=== PATIENT | female | born 1980 | race Hispanic/Latino ===

== ENCOUNTER 2018-12-18 09:25 | Day surgery (SDC) | payer BC, OTHER ==
--- NOTE | 2018-12-12 16:59 | History and Physical Report ---
History of Present Illness Date of examination: 12/12/18 Date of admission: 12/18/18 Chief complaint: desires sterilization History of present illness: Visit Type: Pre-Op CC: LTL. History of Present Illness: pt presents for pre op: LTL...vicki All risk/benefits/alternatives were d/w pt and questions were addressed and answered. Consents signed and given to pt to bring to pre op at [facility]. Vital Signs: Patient Profile: 38 Years Old Female LMP: 12/03/2018 Height: 65.25 inches (165.74 cm) Weight: 220 pounds BMI: 36.33 BP sittin / 78 (left arm) Menstrual History: LMP (date): 12/03/2018 Current Method of Contraception: None Date of Last Pap Smear: 11/01/2018 Past History : 3 Term Births: 2 Premature Births: 0 Living Children: 2 Para: 2 Mult. Births: 0 Prev : 0 Prev. attempt? 0 Aborta: 0 Elect. Ab: 1 Spont. Ab: 0 Ectopics: 0 # 1 Delivery date: 04/24/2010 Weeks Gestation: 41 labor: no Delivery type: Hours of labor: 36 Anesthesia type: epidural Delivery location: [facility] [place] Infant Sex: Female weight: 7-2 Name: Sarkis Comments: Induction # 2 Delivery date: 01/23/2015 Weeks Gestation: 40 5/7 Delivery type: Vaginal Anesthesia type: none Delivery location: [facility] Sex: female weight: 6.81 Comments: none, precipitous delivery SKIN CARE CONSULTANT History Uterine Surgery (not C/S): negative Operations: negative Hospitalizations: negative Anesthesia Complications: negative Abnormal PAP: negative Uterine Anomaly: negative TUNG Exposure: negative Infertility: negative Infection History HIV Risk Eval: no Personal hx. of genital herpes: yes Partner hx. 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 Past Surgical History: Reviewed history from 05/21/2013 and no changes required: negative [[facility]] Risk Factors: Smoked Tobacco Use: Current every day smoker Cigarettes: Yes -- 1/2 pack daily pack(s) per day,Smokeless Tobacco Use: Never Drug use: no HIV high-risk behavior: no Alcohol use: yes Exercise: no Seatbelt use: 100 % PAP Smear History: Date of Last PAP Smear: 11/01/2018 Review of Systems General Denies fever, chills, sweats, anorexia, fatigue, weakness, malaise, weight loss and sleep disorder. Denies nausea, vomiting, headache, swelling of legs, abdominal pain, vaginal discharge, vaginal bleeding and contractions. Denies vaginal discharge, incontinence, dysuria, hematuria, urinary f requency, amenorrhea, menorrhagia, abnormal vaginal bleeding, pelvic pain, genital sores, decreased libido, painful periods, painful sex, urinary urgency, hot flashes, vaginal dryness, vaginal itching and vaginal odor. CV Denies chest pains, palpitations, syncope, dyspnea on exertion, orthopnea, PND and peripheral edema. Resp Denies cough, dyspnea at rest, excessive sputum, hemoptysis, wheezing and pleurisy. GI Denies nausea, vomiting, diarrhea, constipation, change in bowel habits, abdominal pain, melena, hematochezia, jaundice, gas/bloating, indigestion/heartburn, dysphagia and odynophagia. Endo Denies cold intolerance, heat intolerance, polydipsia, polyphagia, polyuria and unusual weight change. Breast Denies left breast lump, right breast lump, nipple discharge, bloody discharge from nipple, breast pain, abnormal mammogram and breast enlargement. MS Denies back pain, joint pain, joint swelling, muscle cramps, muscle weakness, stiffness, arthritis, sciatica, restless legs, leg pain at night and leg pain with exertion. Derm Denies rash, itching, dryness and suspicious lesions. Neuro Denies paralysis, paresthesias, headache, seizures, tremors, vertigo, transient blindness, frequent falls, frequent headaches and difficulty walking. Psych Denies depression, anxiety, irritability and mood swings. Eyes Denies blurring, diplopia, irritation, discharge, vision loss, eye pain and photophobia. ENT Denies earache, ear discharge, tinnitus, decreased hearing, nasal congestion, nosebleeds, sore throat and hoarseness. Allergy Denies urticaria, allergic rash, hay fever and recurrent infections. Heme Denies abnormal bruising, bleeding and enlarged lymph nodes. [Labs In-House] Physical Exam Appearance: well developed, well nourished, no acute distress Other Exams Lungs: no rales, rhonchi, or wheezes Heart: S1, S2, no murmur, rub, or gallop Abdomen: soft, non-tender, no masses, bowel sounds normal Extremities: normal alignment, no joint enlargement, crepitus, masses or tenderness; normal tone and strength Genitourinary Exam Comments: deferred until EUA Past History Past Medical History: other (peptic ulcer disease) Past Surgical History: other (vular sx for pre cancer cells) SKIN CARE CONSULTANT History: other (pre cancer cells of vulvar treated) Social history: no significant social history, - Obstetrical History : 2 Spontaneous Abortions: 1 Number of Living Children: 2 Medications and Allergies Allergies Allergy/AdvReac Type Severity Reaction Status Date / Time No Known Allergies Allergy Verified 01/23/15 10:18 Home Medications Medication Instructions Recorded Confirmed Last Taken Type Pnv,Calcium 72/Iron/Folic Acid 1 tab PO DAILY 01/23/15 01/23/15 Unknown History [Pnv Plus Multivit Tab] Valacyclovir HCl [valACYclovir] 1 tab PO DAILY 01/23/15 01/23/15 Unknown History Review of Systems All systems: negative - Physical Exam Cardiovascular: Normal S1, Normal S2 Lungs: Positive: Clear to auscultation, Normal air movement Abdomen: Positive: normal appearance, soft. Negative: distention, tenderness, guarding Genitourinary (Female): Positive: other (deferred until EUA) Extremities: Positive: normal. Negative: tenderness, edema Results All other labs normal. Assessment and Plan - Patient Problems (1) Encounter for sterilization Status: Acute Plan to address problem: -admit and prepare for LTL -consents signed and placed on the chart.
[~2018-12-18 09:25] MED LIST: ANCEF/STERILE WATER 2 GM/20 ML 2 GM/20 ML SYRINGE IV NR; LACTATED RINGERS 1,000 ML IV SCH
[2018-12-18] MEDS ORDERED: MARCAINE 0.5% INFILTRATI ONE ×2 (10:27→10:50)
--- NOTE | 2018-12-18 10:47 | Anesthesia Day of Surgery ---
Anesthesia Day of Surgery - Day of Surgery Patient Examined: Yes Patient H&P Reviewed: Yes Patient is NPO: Yes
--- NOTE | 2018-12-18 10:47 | Anesthesia Consultation ---
Anesthesia Consult and Med Hx Date of service: 12/18/18 - Airway Anesthetic Teeth Evaluation: Good ROM Head & Neck: Adequate Mental/Hyoid Distance: Adequate Mallampati Class: Class II Intubation Access Assessment: Probably Good - Pulmonary Exam CTA: Yes - Cardiac Exam Cardiac Exam: RRR - Pre-Operative Health Status ASA Pre-Surgery Classification: ASA2 Proposed Anesthetic Plan: General - Pulmonary Hx Smoking: Yes - Gastrointestinal Hx Gastroesophageal Reflux Disease: Yes - Endocrine Hx Renal Disease: No (kidney stones) - Additional Comments Anesthesia Medical History Comments: arthiritis
[2018-12-18] MEDS ORDERED: NACL 0.9% IR ONE (10:50)
[2018-12-18] MEDS ORDERED: XYLOCAINE MPF 2% ONE (10:52)
[2018-12-18] MEDS ORDERED: SUBLIMAZE ONE (10:52)
[2018-12-18] MEDS ORDERED: ZEMURON IV ONE (10:52)
[2018-12-18] MEDS ORDERED: DIPRIVAN 10 MG/ML IV ONE ×2 (10:53→11:01)
[2018-12-18] MEDS ORDERED: TORADOL ONE (11:34)
[2018-12-18] MEDS ORDERED: ZOFRAN ONE (11:34)
[2018-12-18] MEDS ORDERED: DECADRON ONE (11:34)
[2018-12-18] MEDS ORDERED: BLOXIVERZ ONE (11:35)
[2018-12-18] MEDS ORDERED: ROBINUL ONE ×2 (11:35)
[2018-12-18] MEDS ORDERED: DILAUDID ONE (11:44)
--- NOTE | 2018-12-18 11:53 | Operative Report ---
Operative Report Operative Report: Date of procedure: 12/18/2018 Pre-operative diagnosis: Encounter for sterilization Post-operative diagnosis: Same Procedure name(s): Laparoscopic bilateral tubal ligation with placement of Filshie clips Surgeon: Dr. 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 endotracheal anesthesia EBL: Minimal Urine output: 100 mL of urine out prior to the onset of the procedure. Straight catheterization Fluids: 650 mL Findings: Grossly normal fallopian tubes and ovaries bilaterally. Normal uterus. Normal cervix normal vagina. Indications: Patient desired to have permanent sterilization. All risks benefits and alternatives were discussed with the patient. Consents were signed and placed on the chart. Procedure: Patient was taken to the operating room and which she was placed under general endotracheal anesthesia. Patient was then prepped and draped in sterile fashion and placed in dorsal lithotomy position in Carmelo stirrups. Attention was then turned to the vagina in which a Humi uterine manipulator was placed. Patient underwent straight catheterization. Attention was then turned to the umbilicus and which an infraumbilical incision was made with the scalpel 5mm trocar was placed using direct visualization with the camera. Abdomen was then insufflated with gas. Under direct visualization a second 8 mm trocar was placed. The Filshie clip orchestra leader with a Filshie clip was then placed through the 8 mm trocar. The Filshie clips were placed bilaterally on each fallopian tube without difficulty. Care was taken to be sure that the Filshie clips encompassed the entire fallopian tube. After tubal ligation was completed all instruments were removed from the abdomen under direct visualization. All gas was also released from the abdomen. The skin was approximated with 4-0 Monocryl in a subcuticular stitch. Patient was injected at all incisions with Marcaine without epi. The patient tolerated procedure well. Sponge, lap, and needle counts were all correct x3 the patient was taken to the recovery room awake and in stable condition.
--- NOTE | 2018-12-18 11:56 | Short Stay Summary ---
Short Stay Documentation Date of service: 12/18/18 - History H&P: dictated Social history: no significant social history, - Allergies and Medications Current Medications: Allergies No Known Allergies Allergy (Verified 12/13/18 09:04) Home Medications Medication Instructions Recorded Confirmed Last Taken Type RX: Ibuprofen 800 mg PO Q6HR #30 tablet 12/18/18 Unknown Rx oxyCODONE /ACETAMINOPHEN [Percocet 1 tab PO Q4HR #30 tab 12/18/18 Unknown Rx 5/325] Active Medications Cefazolin Sodium (Ancef/Sterile Water 2 Gm/20 Ml) 2 gm in 20 mls @ 80 mls/hr IV PREOP NR; Protocol Stop: 12/18/18 23:59 Lactated Ringer's (Lactated Ringers) 1,000 mls @ 75 mls/hr IV DIRECT REANNA Stop: 12/18/18 23:59 Last Admin: 12/18/18 10:25 Dose: 75 mls/hr Documented by: - Brief post op/procedure progress note Date of procedure: 12/18/18 Pre-op diagnosis: enounconter for sterilization Post-op diagnosis: same Procedure: LTL with felshi clips Anesthesia: GETA Findings: see op note Surgeon: CHETNA ORTA Estimated blood loss: minimal Pathology: none Condition: stable - Hospital course Hospital course: Pt was admitted for LTL. Pt to be d/c home once d/c criteria has been met in PACU. F/u in the office in one week. - Disposition Condition at discharge: Good Disposition: DC-01 TO HOME OR SELFCARE - Discharge Diagnoses (1) Encounter for sterilization Status: Acute Short Stay Discharge Plan Activity: no restrictions Weight Bearing Status: Weight Bear as Tolerated Diet: regular Follow up with: MENA CLARK MD [Primary Care Provider] - 7 Days CHETNA ORTA MD [Staff Physician] - 7 Days Prescriptions: RX: Ibuprofen 800 mg PO Q6HR #30 tablet oxyCODONE /ACETAMINOPHEN [Percocet 5/325] 1 tab PO Q4HR #30 tab
[2018-12-18] MEDS ORDERED: PERCOCET 5/325 PO PRN (12:20)
[2018-12-18] MEDS ORDERED: DEMEROL IV PRN (12:21)
[2018-12-18] MEDS ORDERED: ZOFRAN IV PRN (12:23)
[2018-12-18] MEDS ORDERED: DILAUDID IV PRN (12:23)
[2018-12-18 12:53] VITALS: BP 116/61
== END 2018-12-18 13:33 | disposition home or self-care (01) ==
LOC: OR 09:25
PROVIDERS: ATTEND Obstetrics & Gynecology
DX: Z30.2 Encounter for sterilization (principal); K21.9 Gastro-esophageal reflux disease without esophagitis; M19.90 Unspecified osteoarthritis, unspecified site; G43.909 Migraine, unspecified, not intractable, without status migrainosus; F17.210 Nicotine dependence, cigarettes, uncomplicated; Z79.899 Other long term (current) drug therapy; Z98.890 Other specified postprocedural states; Z87.442 Personal history of urinary calculi; Z72.89 Other problems related to lifestyle
CPT/HCPCS: 58671; 81025; J0690; J1100; J1170; J1885; J2175; J2405; J2704; J2710; J3010; J7120